=== PATIENT | female | born 1980 ===

== ENCOUNTER 2016-06-04 12:17 | Emergency (ER) | payer BC, MEDICAID ==
--- NOTE | 2016-06-04 14:35 | C.PDOC ---
History Of Present Illness 35 yr old female with PMHx of Lupus, presents to the ER with complaints of feeling itchy all over the body and bruising in the same area for the past 1 week. Patient reports itchiness and bruising to the shoulders, hips, lower abdomen and legs. Patient states she was seen by her Lupus doctor who had blood work done but she is unaware of the results. Patient denies fever, chills, chest pain, SOB, nausea, vomiting, diarrhea, weakness or numbness. Time Seen by Provider: 06/04/16 13:35 Chief Complaint (Nursing): Abnormal Skin Integrity History Per: Patient History/Exam Limitations: no limitations Onset/Duration Of Symptoms: Persistent (1 week) Current Symptoms Are (Timing): Still Present Past Medical History Reviewed: Historical Data, Nursing Documentation, Vital Signs Vital Signs: Last Vital Signs Temp 98.6 F 06/04/16 12:59 Pulse 77 06/04/16 12:59 Resp 20 06/04/16 12:59 BP 128/82 06/04/16 12:59 Pulse Ox 98 06/04/16 14:38 - Medical History Other PMH: Lupus Family History: States: No Known Family Hx - Social History Hx Tobacco Use: No Hx Alcohol Use: No Hx Substance Use: No - Immunization History Hx Tetanus Toxoid Vaccination: No Hx Influenza Vaccination: No Hx Pneumococcal Vaccination: No Review Of Systems Except As Marked, All Systems Reviewed And Found Negative. Constitutional: Negative for: Fever, Chills Cardiovascular: Negative for: Chest Pain Respiratory: Negative for: Shortness of Breath Gastrointestinal: Negative for: Nausea, Vomiting, Diarrhea Skin: Positive for: Other (Itchy rash to the bilateral shoulders, hips, lower abdomen and legs, with brusing to the same areas. ) Neurological: Negative for: Weakness, Numbness Physical Exam - Physical Exam Appears: Well, Non-toxic, No Acute Distress Skin: Warm, Dry, Other (Itchy rash to the bilateral shoulders, hips, lower abdomen and legs, with brusing to the same areas. ) Head: Atraumatic, Normacephalic Oral Mucosa: Moist Throat: Normal, No Erythema, No Exudate Chest: Symmetrical, No Tenderness Cardiovascular: Rhythm Regular, No Murmur Respiratory: Normal Breath Sounds, No Rales, No Rhonchi, No Stridor, No Wheezing Extremity: Normal ROM, No Swelling Neurological/Psych: Oriented x3, Normal Speech, Normal Motor ED Course And Treatment - Laboratory Results Result Diagrams: 06/04/16 14:36 06/04/16 14:36 O2 Sat by Pulse Oximetry: 98 Medical Decision Making Medical Decision Making: PLAN: * CBC * HCG Urine * Urinalysis Disposition Counseled Patient/Family Regarding: Studies Performed, Need For Followup, Rx Given - Disposition Disposition: HOME/ ROUTINE Disposition Time: 15:21 Condition: STABLE Additional Instructions: Follow up with your doctor. Return to the Emergency Department with any further complaints. Prescriptions: DiphenhydrAMINE [Benadryl] 1 cap PO Q6H PRN #30 cap PRN Reason: rash Instructions: Itchy Skin (ED) Forms: General Discharge Instructions - POA Present On Arrival: None - Clinical Impression Clinical Impression: Rash - Scribe Statement The provider has reviewed the documentation as recorded by the Kentrellibmarques Allen Provider Attestation: All medical record entries made by the Kentrellibmarques were at my direction and personally dictated by me. I have reviewed the chart and agree that the record accurately reflects my personal performance of the history, physical exam, medical decision making, and the department course for this patient. I have also personally directed, reviewed, and agree with the discharge instructions and disposition.
[2016-06-04 14:43] LABS: BASO # 0.1 K/uL (0.0-0.2); BASO % 0.7 % (0.0-2.0); EOS # 0.2 K/uL (0.0-0.7); EOS % 1.6 % (0.0-4.0); HEMATOCRIT 35.5 % (34.0-47.0); LYMPH # 2.8 K/uL (1.0-4.3); LYMPH % 30.2 % (20.0-40.0); MEAN CELL VOLUME 74.1 fL (81.0-99.0); MEAN CORPUSCULAR HEMOGLOBIN 23.5 pg (27.0-31.0); MEAN CORPUSCULAR HGB CONC 31.7 g/dL (33.0-37.0); MEAN PLATELET VOLUME 8.3 fL (7.2-11.7); MONO # 0.8 K/uL (0.0-0.8); MONO % 8.7 % (0.0-10.0); RED CELL DISTRIBUTION WIDTH 16.2 % (11.5-14.5); WHITE BLOOD COUNT 9.4 K/uL (4.8-10.8)
[2016-06-04 14:54] LABS: CHLORIDE 101 mmol/L (98-107)
[2016-06-04 14:55] LABS: POTASSIUM 3.6 mmol/L (3.6-5.2); SODIUM 138 mmol/L (132-148)
[2016-06-04 14:57] LABS: GFR AFRICAN-AMERICAN > 60
[2016-06-04 14:58] LABS: BLOOD UREA NITROGEN 9 mg/dL (7-17); CALCIUM 8.3 mg/dl (8.6-10.4); CARBON DIOXIDE 26 mmol/L (22-30); GLUCOSE,RANDOM 89 mg/dL (65-105)
[2016-06-04 15:13] LABS: RBC URINE 11 /hpf (0-3); URINE BACTERIA RARE (<OCC); URINE BILIRUBIN NEGATIVE (NEGATIVE); URINE BLOOD 1+ (NEGATIVE); URINE COLOR Yellow (YELLOW); URINE GLUCOSE (UA) NORMAL (Normal); URINE KETONE NEGATIVE (NEGATIVE); URINE LEUKOCYTE ESTERASE 3+ Leu/uL (Negative); URINE PROTEIN NEGATIVE (NEGATIVE); URINE UROBILINOGEN NORMAL mg/dL (0.2-1.0); WBC URINE 28 /hpf (0-5)
[2016-06-04 15:40] VITALS: BP 132/20; PULSE 80; RESP 18; TEMP 98.4; O2SAT 100
== END 2016-06-04 15:39 | disposition home or self-care (01) ==
LOC: C.ER 12:17
DX: R21 Rash and other nonspecific skin eruption (principal)